=== PATIENT | female | born 1975 | race Caucasian/White ===

== ENCOUNTER 2021-01-01 13:36 | Emergency (ER) | payer BC ==
[~2021-01-01] VITALS: Ht 180.3 cm; Wt 95.3 kg
[2021-01-01] MEDS ORDERED: ZESTRIL10 M1 PO (13:45)
== END 2021-01-01 16:11 | disposition home or self-care (01) ==
LOC: ER 13:36
DX: S60.222A Contusion of left hand, initial encounter (principal); W22.8XXA Striking against or struck by other objects, initial encounter; Y93.18 Activity, surfing, windsurfing and boogie boarding; Y92.832 Beach as the place of occurrence of the external cause; Y99.8 Other external cause status